=== PATIENT | male | born 1960 | race Caucasian/White ===

== ENCOUNTER 2023-06-21 07:45 | Outpatient (CLI) | payer OTHER | END 2023-06-21 18:37 | disposition home or self-care (01) | LOC: SRD 07:45 | PROVIDERS: ATTEND Internal Medicine | DX: R91.1 Solitary pulmonary nodule (principal); M19.011 Primary osteoarthritis, right shoulder; M19.012 Primary osteoarthritis, left shoulder; N28.1 Cyst of kidney, acquired; I07.1 Rheumatic tricuspid insufficiency; K76.0 Fatty (change of) liver, not elsewhere classified; J44.9 Chronic obstructive pulmonary disease, unspecified | CPT/HCPCS: 71046-TC; 71250-TC; 76376; 76700-TC; 93005; 93306 ==